=== PATIENT | female | born 1980 | race Caucasian/White ===

== ENCOUNTER 2017-01-23 06:55 | Observation (INO) | payer OTHER ==
[2017-01-23] VITALS (32 sets, daily range): BP systolic 104–156; BP diastolic 58–85; PULSE 46–74; RESP 12–22; Ht 160 cm; Wt 63.0 kg
[~2017-01-23] VITALS: Ht 160 cm; Wt 63.0 kg
[~2017-01-23 06:55] MED LIST: DOXY-220 PO; HYDR-3498 PO; LACTATED RINGER'S 1,000 ML IV* SCH
[2017-01-23] MEDS ORDERED: CLINDAMYCIN 900 MG/D5W (PMX) 50 ML IVPB PRN (07:00)
[2017-01-23] MEDS ORDERED: FER325 PO (07:32)
[2017-01-23] MEDS ORDERED: ASCO500C7 PO (07:33)
[2017-01-23] MEDS ORDERED: FENTAnyl 50 MCG/ML VIAL ONE ×2 (09:06→10:26)
[2017-01-23] MEDS ORDERED: MIDAZOLAM 1 MG/ML 2 ML INJ ONE ×2 (09:06→10:26)
[2017-01-23] MEDS ORDERED: LIDOCAINE 2% (SDV) 5 ML INJ ONE (09:50)
[2017-01-23] MEDS ORDERED: CEFAZOLIN 1 GM INJ ONE (09:50)
[2017-01-23] MEDS ORDERED: PROPOFOL 20 ML ONE (09:50)
[2017-01-23] MEDS ORDERED: ONDANSETRON 4 MG INJ ONE (09:51)
--- NOTE | 2017-01-23 09:53 | OPR ---
Date/Time of Note Date/Time of Note DATE: 01/23/17 TIME: 09:47 Operative Report Procedure Date: Jan 23, 2017 Preoperative Diagnosis Menometrorrhagia, Hyperplasia with atypia Fibroid uterus Postoperative Diagnosis same Operation/Procedure Performed Dilatation and curettage hysteroscopic resection of endometrium Surgeon see signature line Rehabilitation Counsellor none Anesthesia Type: general Estimated Blood Loss: minimal Transfusion none Specimen EMC and Endometrial resection Grafts/Implants none Tubes/Drains none Complications none Pt Condition Post Procedure: stable Disposition: PACU Procedure Description OPERATIVE FINDINGS AT SURGERY: normal endometrial cavity with hyperplastic endometrium. CONSENT: Please see preoperative notes from my office for the consent process. DESCRIPTION OF PROCEDURE: She was taken to the operating room and general anesthesia was induced. She was prepped and draped in the usual sterile fashion. Surgical time out was done. The patient and procedure were identified. The anterior lip of the cervix was grasped with a single-tooth tenaculum and dilated to size 6 Hegar dilators. The hysteroscope Beltrán and Nephew was inserted and the endometrial cavity was visualized clearly. At this time the resectoscope was inserted and the entire endometrium was resected. Dilatation and curettage was done. Traditional endometrial curettage was also obtained. Pathology was sent to the lab. The tenaculum was removed and there was no bleeding from the tenaculum site. The patient tolerated the procedure well. JOHN WILLIAM MD Jan 23, 2017 09:53
--- NOTE | 2017-01-23 09:53 | OPR ---
Date/Time of Note Date/Time of Note DATE: 01/23/17 TIME: 09:47 Operative Report Procedure Date: Jan 23, 2017 Preoperative Diagnosis Menometrorrhagia, Hyperplasia with atypia Fibroid uterus Postoperative Diagnosis same Operation/Procedure Performed Dilatation and curettage hysteroscopic resection of endometrium Surgeon see signature line Player Services Representative none Anesthesia Type: general Estimated Blood Loss: minimal Transfusion none Specimen EMC and Endometrial resection Grafts/Implants none Tubes/Drains none Complications none Pt Condition Post Procedure: stable Disposition: PACU Procedure Description OPERATIVE FINDINGS AT SURGERY: normal endometrial cavity with hyperplastic endometrium. CONSENT: Please see preoperative notes from my office for the consent process. DESCRIPTION OF PROCEDURE: She was taken to the operating room and general anesthesia was induced. She was prepped and draped in the usual sterile fashion. Surgical time out was done. The patient and procedure were identified. The anterior lip of the cervix was grasped with a single-tooth tenaculum and dilated to size 6 Hegar dilators. The hysteroscope Beltrán and Nephew was inserted and the endometrial cavity was visualized clearly. At this time the resectoscope was inserted and the entire endometrium was resected. Dilatation and curettage was done. Traditional endometrial curettage was also obtained. Pathology was sent to the lab. The tenaculum was removed and there was no bleeding from the tenaculum site. The patient tolerated the procedure well. JONH WILLIAM MD Jan 23, 2017 09:53
[2017-01-23] MEDS ORDERED: morphine 10 MG INJ ONE (10:04)
[2017-01-23] MEDS ORDERED: HYDROmorphONE (0.2 MG/ML) 10ML SYG IV ONE (10:26)
[2017-01-23] MEDS ORDERED: FENTAnyl 50 MCG/ML VIAL IV PRN (10:30)
[2017-01-23] MEDS ORDERED: ONDANSETRON 4 MG INJ IV PRN ×2 (10:30→14:00)
[2017-01-23] MEDS ORDERED: MIDAZOLAM 1 MG/ML 2 ML INJ IV PRN (10:30)
[2017-01-23] MEDS ORDERED: HYDROmorphONE (0.2 MG/ML) 10ML SYG IV PRN ×2 (10:30)
[2017-01-23] MEDS ORDERED: MEPERIDINE 25 MG INJ IV PRN (10:30)
[2017-01-23] MEDS ORDERED: ALBUTEROL 0.083% (NEB) 2.5 MG/3 ML AMP ONE (10:43)
[2017-01-23] MEDS ORDERED: ALBUTEROL 0.083% (NEB) 2.5 MG/3 ML AMP HHN PRN (11:00)
[2017-01-23] MEDS ORDERED: morphine 2 MG INJ IV PRN ×2 (12:00→14:00)
[2017-01-23] MEDS ORDERED: NITROGLYCERIN (SL) 0.4 MG TAB SL PRN (12:00)
[2017-01-23] MEDS ORDERED: GLUCOSE GEL 15 GRAM TUBE BUCCAL PRN (14:00)
[2017-01-23] MEDS ORDERED: ACETAMINOPHEN 650 MG SUPP PR PRN (14:00)
[2017-01-23] MEDS ORDERED: DOCUSATE SODIUM 100 MG CAP PO PRN (14:00)
[2017-01-23] MEDS ORDERED: GLUCOSE GEL 15 GRAM TUBE PO PRN ×2 (14:00)
[2017-01-23] MEDS ORDERED: ACETAMINOPHEN 325 MG TAB PO PRN (14:00)
[2017-01-23] MEDS ORDERED: GLUCAGON 1 MG INJ IM PRN (14:00)
[2017-01-23] MEDS ORDERED: NACL 0.9% 3 ML SYG IV SCH (14:00)
[2017-01-23] MEDS ORDERED: DEXTROSE 50% 50 ML SYRINGE IV PRN ×2 (14:00)
--- NOTE | 2017-01-23 14:06 | HP ---
Date/Time of Note Date/Time of Note DATE: 01/23/17 TIME: 14:00 Assessment/Plan VTE Prophylaxis VTE Prophylaxis Intervention: SCD's Lines/Catheters IV Catheter Type (from Nrs): Peripheral IV Assessment/Plan Chief Complaint/Hosp Course 36-year-old female with a medical history of hyperplasia with atypia, menometrorrhagia, uterine fibroid, who was brought electively for D&C by LAB INTERN team. 1. Menometrorrhagia, hyperplasia with atypia, uterine fibroid. Status post Dilatation and curettage,hysteroscopic resection of endometrium on 01/23/2017. -Follow-up with LAB INTERN recommendation on postprocedure course. 2. Chest pain,likely anxiety vs possible anemia-induced At this time, plan is to rule out acute coronary syndrome. PE is very unlikely given the normal oxygenation and complete lack of risk factors. Dissection is unlikely as the patient has no history of uncontrolled HTN and symmetric blood pressures. Plan: Serial EKG Stat ECHO if not done within 6 mos Follow cardiac enzymes Morphine for pain control Continue ASA, NTG SL PRN, O2 if indicated Consider cardiology consult depending on above workup Get lipid profile,A1C and TSH levels in am. 3. History of asthma. Currently stable. -On the clock and as needed nebulizer. 4. Reported history of prediabetes. -Obtain A1c and treat accordingly. Plan: At this time, we feel like patient would benefit from overnight stay in the hospital for observation . She will be started on a diet. Follow-up with serial troponins, 2D echocardiogram and other ordered labs and diagnostic test findings. Plan of care updated with patient and family and they are in agreement. Based on current scenario, estimate 24 hour observation in-house. Approximately 60 minutes was spent on this history and physical. Patient was seen in collaboration with . Problems: HPI/ROS Admit Date/Time Admit Date/Time Hx of Present Illness This is a 36-year-old female with a past medical history asthma, 3, tubal ligation, appendectomy, Menometrorrhagia, hyperplasia with atypia, and uterine fibroid, who was brought to [facility] same-day surgery by LAB INTERN team for elective D&C for uterine fibroid. Postprocedure, patient developed substernal chest pain and weakness. Therefore, hospitalist consultation was requested. At my encounter with the patient, patient continued to have substernal achy chest pain. She denies shortness of breath, nausea, vomiting, abdominal pain, headache, dizziness, or any syncopal episode. EBL documented as 5 mL. Currently, there is no labs to review. Vital signs within acceptable range. Patient remains on 2 L nasal cannula on 100%. She is also slightly anxious and apprehensive at this time. ROS A 12 point review of system was assessed and is negative other than what is mentioned in the HPI. PMH/Family/Social Past Medical History See HPI Past Surgical History See HPI Social History Patient denied history of alcohol, smoking or illicit drug use. Smoking Status: Never smoker Exam/Review of Systems Vital Signs Vitals Vital Signs Date Time Temp Pulse Resp B/P Pulse Ox O2 Delivery O2 Flow Rate FiO2 01/23/17 12:03 60 22 116/78 100 Nasal Cannula 01/23/17 10:53 4.0 01/23/17 10:15 98.9 Exam Exam General: Young female, looking anxious and apprehensive. HEENT: Normocephalic, Atraumatic, No laceration or hematoma; Eyes: PEERL, Conjunctiva clear, Anicteric sclera Neck: Supple without any lymphadenopathy, nontender, no JVD, no carotid bruits, trachea midline, no thyromegaly Cardiac: S1, S2 auscultated, regular rhythm and rate, no mumurs or gallop Pulmonary: Normal respiratory effort. Chest clear to auscultation bilaterally, no adventitious breath sounds GI: Abdomen normal to inspection. Soft, non tender, non- distended, no masses, no rebound tenderness or guarding. Bowel sounds active on all four quadrants Genitourinary: Deferred Extremities: No cyanosis, clubbing, or edema. Pulses [2+] bilaterally. Full ROM on all four extremities. No focal weakness appreciated. Neurologic: Alert to person, place, time, and situation. Affect appropriate, intact sensation. Skin: Clean,dry, and intact. No ecchymosis, no rashes, or lesions Medications Medications Current Medications Clindamycin HCl/ Dextrose (Cleocin 900 Mg/ D5W (Pmx)) 50 ml @ 50 mls/hr OC PRN IVPB ONCALL TO OR; Start 01/23/17 at 07:00; Stop 01/23/17 at 18:00 Aspirin (Aspirin) 81 mg DAILY PO ; Start 01/25/17 at 09:00 Nitroglycerin (Nitroglycerin (Sl Tab) 0.4 Mg) 1 tab Q5M PRN SL CHEST PAIN; Start 01/23/17 at 12:00 Morphine Sulfate 2 mg 2 mg Q2H PRN IV PAIN LEVEL 4-6; Start 01/23/17 at 12:00 Sodium Chloride (NS) 1,000 ml @ 100 mls/hr Q10H IV ; Start 01/23/17 at 13:50; Status UNV Ondansetron HCl (Zofran Inj) 4 mg Q6H PRN IV NAUSEA AND/OR VOMITING; Start at 14:00; Status UNV Acetaminophen (Tylenol Tab) 650 mg Q6H PRN PO PAIN LEVEL 1-3 OR FEVER; Start 01/23/17 at 14:00 Acetaminophen (Tylenol Supp) [address] PAIN LEVEL 1-3 OR FEVER; Start 01/23/17 at 14:00 Morphine Sulfate (morphine) 2 mg Q4H PRN IV SEVERE PAIN LEVEL 7-10; Start at 14:00; Status UNV Docusate Sodium (Colace) 100 mg Q12H PRN PO CONSTIPATION; Start 01/23/17 at 14 :00 Famotidine (Pepcid) 20 mg Q12 PO ; Start 01/23/17 at 21:00 Miscellaneous Information (* Miscellaneous Pharmacy Order) Discontinue current oral sulfonylur... ONCE ONCE XX ; Start 01/23/17 at 14:00; Stop 01/23/17 at 14:01 Diagnostic Test (Pha) (Accu-Chek) 1 ea XX ; Start 01/24/17 at 02:00 Miscellaneous Information (* Miscellaneous Pharmacy Order) HYPOGLYCEMIA PROTOCOL w... ONCE ONCE XX ; Start 01/23/17 at 14:00; Stop 01/23/17 at 14:01 Miscellaneous Information (* Miscellaneous Pharmacy Order) Discontinue all previ... ONCE ONCE XX ; Start 01/23/17 at 14:00; Stop 01/23/17 at 14:01 Ascorbic Acid (Vitamin C) 500 mg DAILY PO ; Start 01/24/17 at 09:00 Ferrous Sulfate (Ferrous Sulfate (Ec)) 325 mg DAILY PO ; Start 01/24/17 at 09: 00 Miscellaneous Information 1 ea NOTE XX ; Start 01/23/17 at 14:00 Glucose (Glutose) 15 gm Q15M PRN PO DECREASED GLUCOSE; Start 01/23/17 at 14:00 Glucose (Glutose) 22.5 gm Q15M PRN PO DECREASED GLUCOSE; Start 01/23/17 at 14: 00 Dextrose (D50w Syringe) 25 ml Q15M PRN IV DECREASED GLUCOSE; Start 01/23/17 at 14:00 Dextrose (D50w Syringe) 50 ml Q15M PRN IV DECREASED GLUCOSE; Start 01/23/17 at 14:00 Glucagon (Glucagen) 1 mg Q15M PRN IM DECREASED GLUCOSE; Start 01/23/17 at 14: 00 Glucose (Glutose) 15 gm Q15M PRN BUCCAL DECREASED GLUCOSE; Start 01/23/17 at 14:00 KAYLEIGH MATHEWA Yani ELECTRICAL & INSTRUMENTATION SUPERVISOR Jan 23, 2017 14:05 Glucose (Glutose) 15 gm Q15M PRN BUCCAL DECREASED GLUCOSE; Start 01/23/17 at 14:00 LAUREN MATHEW V. ELECTRICAL & INSTRUMENTATION SUPERVISOR Jan 23, 2017 14:05
--- NOTE | 2017-01-23 14:06 | HP ---
Date/Time of Note Date/Time of Note DATE: 01/23/17 TIME: 14:00 Assessment/Plan VTE Prophylaxis VTE Prophylaxis Intervention: SCD's Lines/Catheters IV Catheter Type (from Nrs): Peripheral IV Assessment/Plan Chief Complaint/Hosp Course 36-year-old female with a medical history of hyperplasia with atypia, menometrorrhagia, uterine fibroid, who was brought electively for D&C by HORTICULTURAL TECHNICAL OFFICER team. 1. Menometrorrhagia, hyperplasia with atypia, uterine fibroid. Status post Dilatation and curettage,hysteroscopic resection of endometrium on 01/23/2017. -Follow-up with HORTICULTURAL TECHNICAL OFFICER recommendation on postprocedure course. 2. Chest pain,likely anxiety vs possible anemia-induced At this time, plan is to rule out acute coronary syndrome. PE is very unlikely given the normal oxygenation and complete lack of risk factors. Dissection is unlikely as the patient has no history of uncontrolled HTN and symmetric blood pressures. Plan: Serial EKG Stat ECHO if not done within 6 mos Follow cardiac enzymes Morphine for pain control Continue ASA, NTG SL PRN, O2 if indicated Consider cardiology consult depending on above workup Get lipid profile,A1C and TSH levels in am. 3. History of asthma. Currently stable. -On the clock and as needed nebulizer. 4. Reported history of prediabetes. -Obtain A1c and treat accordingly. Plan: At this time, we feel like patient would benefit from overnight stay in the hospital for observation . She will be started on a diet. Follow-up with serial troponins, 2D echocardiogram and other ordered labs and diagnostic test findings. Plan of care updated with patient and family and they are in agreement. Based on current scenario, estimate 24 hour observation in-house. Approximately 60 minutes was spent on this history and physical. Patient was seen in collaboration with . Problems: HPI/ROS Admit Date/Time Admit Date/Time Hx of Present Illness This is a 36-year-old female with a past medical history asthma, 3, tubal ligation, appendectomy, Menometrorrhagia, hyperplasia with atypia, and uterine fibroid, who was brought to [facility] same-day surgery by HORTICULTURAL TECHNICAL OFFICER team for elective D&C for uterine fibroid. Postprocedure, patient developed substernal chest pain and weakness. Therefore, hospitalist consultation was requested. At my encounter with the patient, patient continued to have substernal achy chest pain. She denies shortness of breath, nausea, vomiting, abdominal pain, headache, dizziness, or any syncopal episode. EBL documented as 5 mL. Currently, there is no labs to review. Vital signs within acceptable range. Patient remains on 2 L nasal cannula on 100%. She is also slightly anxious and apprehensive at this time. ROS A 12 point review of system was assessed and is negative other than what is mentioned in the HPI. PMH/Family/Social Past Medical History See HPI Past Surgical History See HPI Social History Patient denied history of alcohol, smoking or illicit drug use. Smoking Status: Never smoker Exam/Review of Systems Vital Signs Vitals Vital Signs Date Time Temp Pulse Resp B/P Pulse Ox O2 Delivery O2 Flow Rate FiO2 01/23/17 12:03 60 22 116/78 100 Nasal Cannula 01/23/17 10:53 4.0 01/23/17 10:15 98.9 Exam Exam General: Young female, looking anxious and apprehensive. HEENT: Normocephalic, Atraumatic, No laceration or hematoma; Eyes: PEERL, Conjunctiva clear, Anicteric sclera Neck: Supple without any lymphadenopathy, nontender, no JVD, no carotid bruits, trachea midline, no thyromegaly Cardiac: S1, S2 auscultated, regular rhythm and rate, no mumurs or gallop Pulmonary: Normal respiratory effort. Chest clear to auscultation bilaterally, no adventitious breath sounds GI: Abdomen normal to inspection. Soft, non tender, non- distended, no masses, no rebound tenderness or guarding. Bowel sounds active on all four quadrants Genitourinary: Deferred Extremities: No cyanosis, clubbing, or edema. Pulses [2+] bilaterally. Full ROM on all four extremities. No focal weakness appreciated. Neurologic: Alert to person, place, time, and situation. Affect appropriate, intact sensation. Skin: Clean,dry, and intact. No ecchymosis, no rashes, or lesions Medications Medications Current Medications Clindamycin HCl/ Dextrose (Cleocin 900 Mg/ D5W (Pmx)) 50 ml @ 50 mls/hr OC PRN IVPB ONCALL TO OR; Start 01/23/17 at 07:00; Stop 01/23/17 at 18:00 Aspirin (Aspirin) 81 mg DAILY PO ; Start 01/25/17 at 09:00 Nitroglycerin (Nitroglycerin (Sl Tab) 0.4 Mg) 1 tab Q5M PRN SL CHEST PAIN; Start 01/23/17 at 12:00 Morphine Sulfate 2 mg 2 mg Q2H PRN IV PAIN LEVEL 4-6; Start 01/23/17 at 12:00 Sodium Chloride (NS) 1,000 ml @ 100 mls/hr Q10H IV ; Start 01/23/17 at 13:50; Status UNV Ondansetron HCl (Zofran Inj) 4 mg Q6H PRN IV NAUSEA AND/OR VOMITING; Start at 14:00; Status UNV Acetaminophen (Tylenol Tab) 650 mg Q6H PRN PO PAIN LEVEL 1-3 OR FEVER; Start 01/23/17 at 14:00 Acetaminophen (Tylenol Supp) 650 mg Q6H PRN [place] PAIN LEVEL 1-3 OR FEVER; Start 01/23/17 at 14:00 Morphine Sulfate (morphine) 2 mg Q4H PRN IV SEVERE PAIN LEVEL 7-10; Start at 14:00; Status UNV Docusate Sodium (Colace) 100 mg Q12H PRN PO CONSTIPATION; Start 01/23/17 at 14 :00 Famotidine (Pepcid) 20 mg Q12 PO ; Start 01/23/17 at 21:00 Miscellaneous Information (* Miscellaneous Pharmacy Order) Discontinue current oral sulfonylur... ONCE ONCE XX ; Start 01/23/17 at 14:00; Stop 01/23/17 at 14:01 Diagnostic Test (Pha) (Accu-Chek) 1 ea XX ; Start 01/24/17 at 02:00 Miscellaneous Information (* Miscellaneous Pharmacy Order) HYPOGLYCEMIA PROTOCOL w... ONCE ONCE XX ; Start 01/23/17 at 14:00; Stop 01/23/17 at 14:01 Miscellaneous Information (* Miscellaneous Pharmacy Order) Discontinue all previ... ONCE ONCE XX ; Start 01/23/17 at 14:00; Stop 01/23/17 at 14:01 Ascorbic Acid (Vitamin C) 500 mg DAILY PO ; Start 01/24/17 at 09:00 Ferrous Sulfate (Ferrous Sulfate (Ec)) 325 mg DAILY PO ; Start 01/24/17 at 09: 00 Miscellaneous Information 1 ea NOTE XX ; Start 01/23/17 at 14:00 Glucose (Glutose) 15 gm Q15M PRN PO DECREASED GLUCOSE; Start 01/23/17 at 14:00 Glucose (Glutose) 22.5 gm Q15M PRN PO DECREASED GLUCOSE; Start 01/23/17 at 14: 00 Dextrose (D50w Syringe) 25 ml Q15M PRN IV DECREASED GLUCOSE; Start 01/23/17 at 14:00 Dextrose (D50w Syringe) 50 ml Q15M PRN IV DECREASED GLUCOSE; Start 01/23/17 at 14:00 Glucagon (Glucagen) 1 mg Q15M PRN IM DECREASED GLUCOSE; Start 01/23/17 at 14: 00 Glucose (Glutose) 15 gm Q15M PRN BUCCAL DECREASED GLUCOSE; Start 01/23/17 at 14:00 KAYLEIGH MATHEWA Yani RESEARCH DEVELOPMENT MANAGER Jan 23, 2017 14:05 Glucose (Glutose) 15 gm Q15M PRN BUCCAL DECREASED GLUCOSE; Start 01/23/17 at 14:00 LAUREN MATHEW V. RESEARCH DEVELOPMENT MANAGER Jan 23, 2017 14:05
[2017-01-23] MEDS: SOD CHLORIDE 0.9% 1,000 ML IV SCH ×2 (15:08→23:50)
[2017-01-23] MEDS: INSULIN ASPART [NOVOLOG] 3 ML PEN SC SCH ×2 (17:08→20:40)
--- NOTE | 2017-01-23 17:30 | RADRPT ---
Echocardiogram Report Patient Name: CLEMENTE VAUGHN Gender: Female Date: 1980 Study Date: 23-Jan-2017 Surveyor Geophysical Prospecting: Eliane Newton RDCS Location: PACU Ref. Physician: LAUREN MATHEW Quality: Technically Difficult Study Procedures: Transthoracic echocardiogram with complete 2D, M-Mode, and doppler examination. Indications: Chest Pain. 2D/M Mode Doppler Measurement Value Normal Ranges Measurement Value Normal Ranges LVIDd 2D 5.0 3.5 - 5.6 cm AV Peak Rogers 1.2 m/sec LVIDs 2D 3.1 2.1 - 4.1 cm AV Peak PG 6.0 mmHg FS 2D 37.9 % LVOT Peak Rogers 0.9 m/sec LVPWd 2D 0.8 0.6 - 1.1 cm LVOT Peak PG 3.0 mmHg IVSd 2D 0.8 0.6 - 1.1 cm MV E Peak Rogers 0.8 m/sec IVS/LVPW 2D 1.0 MV A Peak Rogers 0.6 m/sec AoR Diam 2D 2.3 2.0 - 3.7 cm MV E/A 1.3 LA/Ao 2D 1 0 - 1 MV Decel Time 229 msec EDV 2D 122.0 cm3 MV E/A 1.3 ESV 2D 29.2 cm3 TR Peak Rogers 2.2 m/sec LA Dimen 2D 3.4 2.3 - 4.0 cm TR Peak PG 20.0 mmHg RVSP 30.0 mmHg Findings Left Ventricle: Normal left ventricular systolic function. Normal left ventricular cavity size. Normal left ventricular wall thickness. Ejection fraction is visually estimated at 55 %. Tissue Doppler/Mitral Doppler indices are within normal limits. Right Ventricle: Normal right ventricular size. Normal right ventricular systolic function. Left Atrium: The left atrium is normal in size. Right Atrium: The right atrium is normal in size. Mitral Valve: Mitral valve leaflets appear mildly thickened. Mild mitral annular calcification. Trace mitral regurgitation. Aortic Valve: Normal appearance of the aortic valve. No significant aortic stenosis or insufficiency. Tricuspid Valve: Normal appearance of the tricuspid valve. Estimated peak PA systolic pressure 30 mmHg. There is trace tricuspid regurgitation. Pulmonic Valve: Normal pulmonic valve appearance. Pericardium: Normal pericardium with no significant pericardial effusion. Aorta: Normal aortic root. IVC: Normal size and normal respiratory collapse consistent with normal right atrial pressure. Conclusions 1.Normal left ventricular systolic function. Normal left ventricular cavity size. Normal left ventricular wall thickness. Ejection fraction is visually estimated at 55 %. Tissue Doppler/Mitral Doppler indices are within normal limits. 2.Mitral valve leaflets appear mildly thickened. Mild mitral annular calcification. Trace mitral regurgitation. 3.Normal appearance of the aortic valve. No significant aortic stenosis or insufficiency. 4.Normal appearance of the tricuspid valve. Estimated peak PA systolic pressure 30 mmHg. There is trace tricuspid regurgitation. Electronically Signed By: Manuel Macias 23-Jan-2017 17:30:12 -0700 Patient Name: CLEMENTE VAUGHN Study Date: 23-Jan-2017 [id number]
[2017-01-23] MEDS: FAMOTIDINE 20 MG TAB PO SCH (20:39)
[2017-01-24] VITALS (8 sets, daily range): BP systolic 117–127; BP diastolic 65–92; PULSE 48–83; RESP 17–20
[2017-01-24] MEDS: SOD CHLORIDE 0.9% 1,000 ML IV SCH (01:26)
[2017-01-24] MEDS ORDERED: ACCU-CHEK XX SCH (02:00)
[2017-01-24] MEDS: INSULIN ASPART [NOVOLOG] 3 ML PEN SC SCH ×2 (08:00→12:00)
[2017-01-24] MEDS: FAMOTIDINE 20 MG TAB PO SCH (08:45)
[2017-01-24] MEDS ORDERED: FERROUS SULFATE (EC) 325 MG TAB PO SCH (09:00)
[2017-01-24] MEDS ORDERED: ASCORBIC ACID 500 MG TAB PO SCH (09:00)
--- NOTE | 2017-01-24 09:28 | QN ---
Documentation Comment s/p D&C [facility] [place] yesterday. surgery was without complication. she developed headache and chest pain in recovery room. Hospitalist kindly consulted. she was admitted for further evaluation. today she denies chest pain or SOB. she reports mild headache. she feels tired. she is able to ambulate well. she reports mild vaginal bleeding. AF VSS Abdomen: soft, not tender A/P: chest pain and headache post op in otherwise healthy young women. She denies chest pain today. she will be followed/managed by hospitalist. I will f/u with her in office JOHN WILLIAM MD Jan 24, 2017 09:28
--- NOTE | 2017-01-24 09:28 | QN ---
Documentation Comment s/p D&C [facility] [place] yesterday. surgery was without complication. she developed headache and chest pain in recovery room. Hospitalist kindly consulted. she was admitted for further evaluation. today she denies chest pain or SOB. she reports mild headache. she feels tired. she is able to ambulate well. she reports mild vaginal bleeding. AF VSS Abdomen: soft, not tender A/P: chest pain and headache post op in otherwise healthy young women. She denies chest pain today. she will be followed/managed by hospitalist. I will f/u with her in office JOHN WILLIAM MD Jan 24, 2017 09:28
--- NOTE | 2017-01-24 09:28 | QN ---
Documentation Comment s/p D&C [facility] [place] yesterday. surgery was without complication. she developed headache and chest pain in recovery room. Hospitalist kindly consulted. she was admitted for further evaluation. today she denies chest pain or SOB. she reports mild headache. she feels tired. she is able to ambulate well. she reports mild vaginal bleeding. AF VSS Abdomen: soft, not tender A/P: chest pain and headache post op in otherwise healthy young women. She denies chest pain today. she will be followed/managed by hospitalist. I will f/u with her in office JOHN WILLIAM MD Jan 24, 2017 09:28
--- NOTE | 2017-01-24 11:53 | PDOCDIS ---
Discharge Instructions CONDITION Patient Condition: Stable HOME CARE INSTRUCTIONS: Diet Instructions: Regular FOLLOW UP/APPOINTMENTS Follow-up Plan 1.Follow up with primary care physician in 1 week If you don't have one please let someone know, we can give you resources that may help you pick one. You may also call your insurance company to assign one to you. Review your medication list with your nurse before leaving and if you need new prescriptions please let your nurse know. I may have made changes to your home medications or given you new prescriptions, please let your primary doctor know as well. Stay compliant with your medications and report any side effects to your PCP or pharmacist. Return to the ER if you have any concerns and cannot reach your doctors or call your insurance company, they usually have a nurse that can help you. 2. Call 911 or go to the nearest emergency room if experiencing loss of consciousness, dizziness, chest pain, shortness of breath, vomiting/abdominal pain, speech difficulties, motor weakness or any unusual symptoms. 3.Follow-up with in 1 week in his office at: [id number] [place] [address] Office 4.Continue taking iron tablets 3 times a day with john handyu are already.Take Colace with iron if you are constipated. LAUREN MATHEW NP Jan 24, 2017 11:53
--- NOTE | 2017-01-24 11:53 | PDOCDIS ---
Discharge Instructions CONDITION Patient Condition: Stable HOME CARE INSTRUCTIONS: Diet Instructions: Regular FOLLOW UP/APPOINTMENTS Follow-up Plan 1.Follow up with primary care physician in 1 week If you don't have one please let someone know, we can give you resources that may help you pick one. You may also call your insurance company to assign one to you. Review your medication list with your nurse before leaving and if you need new prescriptions please let your nurse know. I may have made changes to your home medications or given you new prescriptions, please let your primary doctor know as well. Stay compliant with your medications and report any side effects to your PCP or pharmacist. Return to the ER if you have any concerns and cannot reach your doctors or call your insurance company, they usually have a nurse that can help you. 2. Call 911 or go to the nearest emergency room if experiencing loss of consciousness, dizziness, chest pain, shortness of breath, vomiting/abdominal pain, speech difficulties, motor weakness or any unusual symptoms. 3.Follow-up with in 1 week in his office at: [address] [place] [address] Office 4.Continue taking iron tablets 3 times a day with john handyu are already.Take Colace with iron if you are constipated. LAUREN MATHEW NP Jan 24, 2017 11:53
--- NOTE | 2017-01-24 11:53 | PDOCDIS ---
Discharge Instructions CONDITION Patient Condition: Stable HOME CARE INSTRUCTIONS: Diet Instructions: Regular FOLLOW UP/APPOINTMENTS Follow-up Plan 1.Follow up with primary care physician in 1 week If you don't have one please let someone know, we can give you resources that may help you pick one. You may also call your insurance company to assign one to you. Review your medication list with your nurse before leaving and if you need new prescriptions please let your nurse know. I may have made changes to your home medications or given you new prescriptions, please let your primary doctor know as well. Stay compliant with your medications and report any side effects to your PCP or pharmacist. Return to the ER if you have any concerns and cannot reach your doctors or call your insurance company, they usually have a nurse that can help you. 2. Call 911 or go to the nearest emergency room if experiencing loss of consciousness, dizziness, chest pain, shortness of breath, vomiting/abdominal pain, speech difficulties, motor weakness or any unusual symptoms. 3.Follow-up with in 1 week in his office at: [address] [place] [address] Office 4.Continue taking iron tablets 3 times a day with john handyu are already.Take Colace with iron if you are constipated. LAUREN MATHEW NP Jan 24, 2017 11:53
[2017-01-24] MEDS ORDERED: FER325 PO (11:54)
--- NOTE | 2017-01-24 11:57 | DS ---
Date/Time of Note Date/Time of Note DATE: 01/24/17 TIME: 11:57 Discharge Summary Admission/Discharge Info Admit Date/Time Jan 23, 2017 at 13:55 Discharge Date/Time Discharge Diagnosis 1. Menometrorrhagia, hyperplasia with atypia, uterine fibroid. Status post Dilatation and curettage,hysteroscopic resection of endometrium on 01/23/2017. 2. Chest pain,likely anxiety vs possible anemia-induced. ACS ruled out. Chest pain resolved. 3. History of asthma. Consults , SUBSTATION SUPERINTENDENT Procedures 01/23/2070. 2D echocardiogram. Conclusions 1. Normal left ventricular systolic function. Normal left ventricular cavity size. Normal left ventricular wall thickness. Ejection fraction is visually estimated at 55 %. Tissue Doppler/Mitral Doppler indices are within normal limits. 2. Mitral valve leaflets appear mildly thickened. Mild mitral annular calcification. Trace mitral regurgitation. 3. Normal appearance of the aortic valve. No significant aortic stenosis or insufficiency. 4. Normal appearance of the tricuspid valve. Estimated peak PA systolic pressure 30 mmHg. There is trace tricuspid regurgitation. Hx of Present Illness This is a 36-year-old female with a past medical history asthma, 3, tubal ligation, appendectomy, Menometrorrhagia, hyperplasia with atypia, and uterine fibroid, who was brought to [facility] same-day surgery by CLINICAL RESOURCE DIRECTOR team for elective D&C for uterine fibroid. Postprocedure, patient developed substernal chest pain and weakness. Therefore, hospitalist consultation was requested. At my encounter with the patient, patient continued to have substernal achy chest pain. She denies shortness of breath, nausea, vomiting, abdominal pain, headache, dizziness, or any syncopal episode. EBL documented as 5 mL. Currently, there is no labs to review. Vital signs within acceptable range. Patient remains on 2 L nasal cannula on 100%. She is also slightly anxious and apprehensive at this time. Hospital Course Patient had negative EKG. Her echocardiogram with preserved ejection fraction. Patient had -2 sets of troponin. She did have any further chest pain. Patient was noted with iron deficiency. Patient already taking iron supplements 3 times daily at home as she was noted with iron deficiency anemia in the past. At this time, patient is back to her baseline. A1c, TSH and lipid panel within acceptable range. At this time, likely cause of chest pain is most likely anxiety induced with underlying iron deficient anemia. There is no further inpatient workup indicated and patient is medically stable for discharge with outpatient CLINICAL RESOURCE DIRECTOR follow-up. Disposition: Patient will be discharged home with outpatient CLINICAL RESOURCE DIRECTOR follow-up. Patient was instructed to continue taking iron supplements and stool softeners as indicated. Patient verbalized discharge instructions. Approximately 60 minutes was spent in coordinating the discharge on this patient. Patient was seen in collaboration with . Home Meds Active Scripts Ferrous Sulfate* (Ferrous Sulfate*) 325 Mg Tabec, 325 MG PO TID for 30 Days, TAB Prov:LAUREN MATHEW NP 01/24/17 Reported Medications Ascorbic Acid* (Vitamin C*) 500 Mg Capsule.sa, 500 MG PO DAILY, CAP 01/23/17 Discontinued Scripts Doxycycline Monohydrate* (Doxycycline Monohydrate*) 100 Mg Tablet, 100 MG PO BID for surgical site cellulitis , #10 TAB Prov:MILLER SCHREIBER MD 04/28/15 Hydrocodone Bit-Acetaminophen* (Kendrick*) 5-325 Mg Tab, 1 TAB PO Q4H Y for PAIN LEVEL 1-5 for 7 Days, TAB Prov:KAYLIN ROBERSON MD 04/23/15 Follow-up Plan 1.Follow up with primary care physician in 1 week If you don't have one please let someone know, we can give you resources that may help you pick one. You may also call your insurance company to assign one to you. Review your medication list with your nurse before leaving and if you need new prescriptions please let your nurse know. I may have made changes to your home medications or given you new prescriptions, please let your primary doctor know as well. Stay compliant with your medications and report any side effects to your PCP or pharmacist. Return to the ER if you have any concerns and cannot reach your doctors or call your insurance company, they usually have a nurse that can help you. 2. Call 911 or go to the nearest emergency room if experiencing loss of consciousness, dizziness, chest pain, shortness of breath, vomiting/abdominal pain, speech difficulties, motor weakness or any unusual symptoms. 3.Follow-up with in 1 week in his office at: [address] [place] [address] Office 4.Continue taking iron tablets 3 times a day with leals a sypu are already.Take Colace with iron if you are constipated. Primary Care Provider Not On Staff Doctor Pending Labs Laboratory Tests Test 01/23/17 17:07 01/24/17 06:26 01/24/17 07:19 Iron Level 22ug/dl (35-150) Total Iron Binding Capacity 417ug/dl (241-421) Percent Iron Saturation 5% SAT (22-52) Creatine Kinase 48IU/L (23-200) Creatine Kinase Index 0.7 Creatinine Kinase MB (Mass) 0.34ng/ml (0.0-2.4) Troponin I < 0.012ng/ml (0.00-0.12) Lab Scanned Report [id number] White Blood Count 9.610^3/ul (4.8-10.8) Red Blood Count 3.9410^6/ul (4.20-5.40) Hemoglobin 10.5g/dl (12.0-16.0) Hematocrit 33.3% (37.0-47.0) Mean Corpuscular Volume 84.5fl (82.0-101.0) Mean Corpuscular Hemoglobin 26.6pg (29.0-33.0) Mean Corpuscular Hemoglobin Concent 31.5g/dl (32.0-37.0) Red Cell Distribution Width 14.0% (11.5-14.5) Platelet Count 92519^3/UL (140-415) Mean Platelet Volume 11.0fl (7.4-10.4) Neutrophils % 57.1% (39.0-77.0) Lymphocytes % 32.3% (15.0-51.0) Monocytes % 8.5% (0.0-11.0) Eosinophils % 1.4% (0.0-7.0) Basophils % 0.3% (0.0-2.0) Nucleated Red Blood Cells % 0.0/100WBC (0.0-0.0) Neutrophils # 5.510^3/ul (1.6-7.5) Lymphocytes # 3.110^3/ul (0.8-2.9) Monocytes # 0.810^3/ul (0.3-0.9) Eosinophils # 0.110^3/ul (0.0-0.5) Basophils # 0.010^3/ul (0.0-0.1) Nucleated Red Blood Cells # 0.010^3/ul (0.0-0.0) Sodium Level 142mmol/L (135-144) Potassium Level 3.6mmol/L (3.5-5.1) Chloride Level 105mmol/L (97-110) Carbon Dioxide Level 26mmol/L (21-31) Anion Gap 15 (8-16) Blood Urea Nitrogen 5mg/dl (7-20) Creatinine 0.58mg/dl (0.44-1.00) Glucose Level 101mg/dl (70-220) Hemoglobin A1c 5.6% (0-5.9) Calcium Level 8.7mg/dl (8.4-10.2) Magnesium Level 2.1mg/dl (1.7-2.5) LAUREN MATHEW NP Jan 24, 2017 11:57
--- NOTE | 2017-01-24 11:57 | DS ---
Date/Time of Note Date/Time of Note DATE: 01/24/17 TIME: 11:57 Discharge Summary Admission/Discharge Info Admit Date/Time Jan 23, 2017 at 13:55 Discharge Date/Time Discharge Diagnosis 1. Menometrorrhagia, hyperplasia with atypia, uterine fibroid. Status post Dilatation and curettage,hysteroscopic resection of endometrium on 01/23/2017. 2. Chest pain,likely anxiety vs possible anemia-induced. ACS ruled out. Chest pain resolved. 3. History of asthma. Consults , UPPER TIER Procedures 01/23/2070. 2D echocardiogram. Conclusions 1. Normal left ventricular systolic function. Normal left ventricular cavity size. Normal left ventricular wall thickness. Ejection fraction is visually estimated at 55 %. Tissue Doppler/Mitral Doppler indices are within normal limits. 2. Mitral valve leaflets appear mildly thickened. Mild mitral annular calcification. Trace mitral regurgitation. 3. Normal appearance of the aortic valve. No significant aortic stenosis or insufficiency. 4. Normal appearance of the tricuspid valve. Estimated peak PA systolic pressure 30 mmHg. There is trace tricuspid regurgitation. Hx of Present Illness This is a 36-year-old female with a past medical history asthma, 3, tubal ligation, appendectomy, Menometrorrhagia, hyperplasia with atypia, and uterine fibroid, who was brought to [facility] same-day surgery by TRANSPORT AIDE team for elective D&C for uterine fibroid. Postprocedure, patient developed substernal chest pain and weakness. Therefore, hospitalist consultation was requested. At my encounter with the patient, patient continued to have substernal achy chest pain. She denies shortness of breath, nausea, vomiting, abdominal pain, headache, dizziness, or any syncopal episode. EBL documented as 5 mL. Currently, there is no labs to review. Vital signs within acceptable range. Patient remains on 2 L nasal cannula on 100%. She is also slightly anxious and apprehensive at this time. Hospital Course Patient had negative EKG. Her echocardiogram with preserved ejection fraction. Patient had -2 sets of troponin. She did have any further chest pain. Patient was noted with iron deficiency. Patient already taking iron supplements 3 times daily at home as she was noted with iron deficiency anemia in the past. At this time, patient is back to her baseline. A1c, TSH and lipid panel within acceptable range. At this time, likely cause of chest pain is most likely anxiety induced with underlying iron deficient anemia. There is no further inpatient workup indicated and patient is medically stable for discharge with outpatient TRANSPORT AIDE follow-up. Disposition: Patient will be discharged home with outpatient TRANSPORT AIDE follow-up. Patient was instructed to continue taking iron supplements and stool softeners as indicated. Patient verbalized discharge instructions. Approximately 60 minutes was spent in coordinating the discharge on this patient. Patient was seen in collaboration with . Home Meds Active Scripts Ferrous Sulfate* (Ferrous Sulfate*) 325 Mg Tabec, 325 MG PO TID for 30 Days, TAB Prov:LAUREN MATHEW NP 01/24/17 Reported Medications Ascorbic Acid* (Vitamin C*) 500 Mg Capsule.sa, 500 MG PO DAILY, CAP 01/23/17 Discontinued Scripts Doxycycline Monohydrate* (Doxycycline Monohydrate*) 100 Mg Tablet, 100 MG PO BID for surgical site cellulitis , #10 TAB Prov:MILLER SCHREIBER MD 04/28/15 Hydrocodone Bit-Acetaminophen* ([place]*) 5-325 Mg Tab, 1 TAB PO Q4H Y for PAIN LEVEL 1-5 for 7 Days, TAB Prov:KAYLIN ROBERSON MD 04/23/15 Follow-up Plan 1.Follow up with primary care physician in 1 week If you don't have one please let someone know, we can give you resources that may help you pick one. You may also call your insurance company to assign one to you. Review your medication list with your nurse before leaving and if you need new prescriptions please let your nurse know. I may have made changes to your home medications or given you new prescriptions, please let your primary doctor know as well. Stay compliant with your medications and report any side effects to your PCP or pharmacist. Return to the ER if you have any concerns and cannot reach your doctors or call your insurance company, they usually have a nurse that can help you. 2. Call 911 or go to the nearest emergency room if experiencing loss of consciousness, dizziness, chest pain, shortness of breath, vomiting/abdominal pain, speech difficulties, motor weakness or any unusual symptoms. 3.Follow-up with in 1 week in his office at: [address] [place] [address] Office 4.Continue taking iron tablets 3 times a day with leals a sypu are already.Take Colace with iron if you are constipated. Primary Care Provider Not On Staff Doctor Pending Labs Laboratory Tests Test 01/23/17 17:07 01/24/17 06:26 01/24/17 07:19 Iron Level 22ug/dl (35-150) Total Iron Binding Capacity 417ug/dl (241-421) Percent Iron Saturation 5% SAT (22-52) Creatine Kinase 48IU/L (23-200) Creatine Kinase Index 0.7 Creatinine Kinase MB (Mass) 0.34ng/ml (0.0-2.4) Troponin I < 0.012ng/ml (0.00-0.12) Lab Scanned Report [id number] White Blood Count 9.610^3/ul (4.8-10.8) Red Blood Count 3.9410^6/ul (4.20-5.40) Hemoglobin 10.5g/dl (12.0-16.0) Hematocrit 33.3% (37.0-47.0) Mean Corpuscular Volume 84.5fl (82.0-101.0) Mean Corpuscular Hemoglobin 26.6pg (29.0-33.0) Mean Corpuscular Hemoglobin Concent 31.5g/dl (32.0-37.0) Red Cell Distribution Width 14.0% (11.5-14.5) Platelet Count 14280^3/UL (140-415) Mean Platelet Volume 11.0fl (7.4-10.4) Neutrophils % 57.1% (39.0-77.0) Lymphocytes % 32.3% (15.0-51.0) Monocytes % 8.5% (0.0-11.0) Eosinophils % 1.4% (0.0-7.0) Basophils % 0.3% (0.0-2.0) Nucleated Red Blood Cells % 0.0/100WBC (0.0-0.0) Neutrophils # 5.510^3/ul (1.6-7.5) Lymphocytes # 3.110^3/ul (0.8-2.9) Monocytes # 0.810^3/ul (0.3-0.9) Eosinophils # 0.110^3/ul (0.0-0.5) Basophils # 0.010^3/ul (0.0-0.1) Nucleated Red Blood Cells # 0.010^3/ul (0.0-0.0) Sodium Level 142mmol/L (135-144) Potassium Level 3.6mmol/L (3.5-5.1) Chloride Level 105mmol/L (97-110) Carbon Dioxide Level 26mmol/L (21-31) Anion Gap 15 (8-16) Blood Urea Nitrogen 5mg/dl (7-20) Creatinine 0.58mg/dl (0.44-1.00) Glucose Level 101mg/dl (70-220) Hemoglobin A1c 5.6% (0-5.9) Calcium Level 8.7mg/dl (8.4-10.2) Magnesium Level 2.1mg/dl (1.7-2.5) LAUREN MATHEW NP Jan 24, 2017 11:57
--- NOTE | 2017-01-24 11:57 | DS ---
Date/Time of Note Date/Time of Note DATE: 01/24/17 TIME: 11:57 Discharge Summary Admission/Discharge Info Admit Date/Time Jan 23, 2017 at 13:55 Discharge Date/Time Discharge Diagnosis 1. Menometrorrhagia, hyperplasia with atypia, uterine fibroid. Status post Dilatation and curettage,hysteroscopic resection of endometrium on 01/23/2017. 2. Chest pain,likely anxiety vs possible anemia-induced. ACS ruled out. Chest pain resolved. 3. History of asthma. Consults , HEALTHCARE ADMINISTRATIVE ASSISTANT Procedures 01/23/2070. 2D echocardiogram. Conclusions 1. Normal left ventricular systolic function. Normal left ventricular cavity size. Normal left ventricular wall thickness. Ejection fraction is visually estimated at 55 %. Tissue Doppler/Mitral Doppler indices are within normal limits. 2. Mitral valve leaflets appear mildly thickened. Mild mitral annular calcification. Trace mitral regurgitation. 3. Normal appearance of the aortic valve. No significant aortic stenosis or insufficiency. 4. Normal appearance of the tricuspid valve. Estimated peak PA systolic pressure 30 mmHg. There is trace tricuspid regurgitation. Hx of Present Illness This is a 36-year-old female with a past medical history asthma, 3, tubal ligation, appendectomy, Menometrorrhagia, hyperplasia with atypia, and uterine fibroid, who was brought to [facility] same-day surgery by SUPERVISOR LOOPING team for elective D&C for uterine fibroid. Postprocedure, patient developed substernal chest pain and weakness. Therefore, hospitalist consultation was requested. At my encounter with the patient, patient continued to have substernal achy chest pain. She denies shortness of breath, nausea, vomiting, abdominal pain, headache, dizziness, or any syncopal episode. EBL documented as 5 mL. Currently, there is no labs to review. Vital signs within acceptable range. Patient remains on 2 L nasal cannula on 100%. She is also slightly anxious and apprehensive at this time. Hospital Course Patient had negative EKG. Her echocardiogram with preserved ejection fraction. Patient had -2 sets of troponin. She did have any further chest pain. Patient was noted with iron deficiency. Patient already taking iron supplements 3 times daily at home as she was noted with iron deficiency anemia in the past. At this time, patient is back to her baseline. A1c, TSH and lipid panel within acceptable range. At this time, likely cause of chest pain is most likely anxiety induced with underlying iron deficient anemia. There is no further inpatient workup indicated and patient is medically stable for discharge with outpatient SUPERVISOR LOOPING follow-up. Disposition: Patient will be discharged home with outpatient SUPERVISOR LOOPING follow-up. Patient was instructed to continue taking iron supplements and stool softeners as indicated. Patient verbalized discharge instructions. Approximately 60 minutes was spent in coordinating the discharge on this patient. Patient was seen in collaboration with . Home Meds Active Scripts Ferrous Sulfate* (Ferrous Sulfate*) 325 Mg Tabec, 325 MG PO TID for 30 Days, TAB Prov:LAUREN MATHEW NP 01/24/17 Reported Medications Ascorbic Acid* (Vitamin C*) 500 Mg Capsule.sa, 500 MG PO DAILY, CAP 01/23/17 Discontinued Scripts Doxycycline Monohydrate* (Doxycycline Monohydrate*) 100 Mg Tablet, 100 MG PO BID for surgical site cellulitis , #10 TAB Prov:MILLER SCHREIBER MD 04/28/15 Hydrocodone Bit-Acetaminophen* ([place]*) 5-325 Mg Tab, 1 TAB PO Q4H Y for PAIN LEVEL 1-5 for 7 Days, TAB Prov:KAYLIN ROBERSON MD 04/23/15 Follow-up Plan 1.Follow up with primary care physician in 1 week If you don't have one please let someone know, we can give you resources that may help you pick one. You may also call your insurance company to assign one to you. Review your medication list with your nurse before leaving and if you need new prescriptions please let your nurse know. I may have made changes to your home medications or given you new prescriptions, please let your primary doctor know as well. Stay compliant with your medications and report any side effects to your PCP or pharmacist. Return to the ER if you have any concerns and cannot reach your doctors or call your insurance company, they usually have a nurse that can help you. 2. Call 911 or go to the nearest emergency room if experiencing loss of consciousness, dizziness, chest pain, shortness of breath, vomiting/abdominal pain, speech difficulties, motor weakness or any unusual symptoms. 3.Follow-up with in 1 week in his office at: [address] [place] [address] Office 4.Continue taking iron tablets 3 times a day with leals a sypu are already.Take Colace with iron if you are constipated. Primary Care Provider Not On Staff Doctor Pending Labs Laboratory Tests Test 01/23/17 17:07 01/24/17 06:26 01/24/17 07:19 Iron Level 22ug/dl (35-150) Total Iron Binding Capacity 417ug/dl (241-421) Percent Iron Saturation 5% SAT (22-52) Creatine Kinase 48IU/L (23-200) Creatine Kinase Index 0.7 Creatinine Kinase MB (Mass) 0.34ng/ml (0.0-2.4) Troponin I < 0.012ng/ml (0.00-0.12) Lab Scanned Report [id number] White Blood Count 9.610^3/ul (4.8-10.8) Red Blood Count 3.9410^6/ul (4.20-5.40) Hemoglobin 10.5g/dl (12.0-16.0) Hematocrit 33.3% (37.0-47.0) Mean Corpuscular Volume 84.5fl (82.0-101.0) Mean Corpuscular Hemoglobin 26.6pg (29.0-33.0) Mean Corpuscular Hemoglobin Concent 31.5g/dl (32.0-37.0) Red Cell Distribution Width 14.0% (11.5-14.5) Platelet Count 55939^3/UL (140-415) Mean Platelet Volume 11.0fl (7.4-10.4) Neutrophils % 57.1% (39.0-77.0) Lymphocytes % 32.3% (15.0-51.0) Monocytes % 8.5% (0.0-11.0) Eosinophils % 1.4% (0.0-7.0) Basophils % 0.3% (0.0-2.0) Nucleated Red Blood Cells % 0.0/100WBC (0.0-0.0) Neutrophils # 5.510^3/ul (1.6-7.5) Lymphocytes # 3.110^3/ul (0.8-2.9) Monocytes # 0.810^3/ul (0.3-0.9) Eosinophils # 0.110^3/ul (0.0-0.5) Basophils # 0.010^3/ul (0.0-0.1) Nucleated Red Blood Cells # 0.010^3/ul (0.0-0.0) Sodium Level 142mmol/L (135-144) Potassium Level 3.6mmol/L (3.5-5.1) Chloride Level 105mmol/L (97-110) Carbon Dioxide Level 26mmol/L (21-31) Anion Gap 15 (8-16) Blood Urea Nitrogen 5mg/dl (7-20) Creatinine 0.58mg/dl (0.44-1.00) Glucose Level 101mg/dl (70-220) Hemoglobin A1c 5.6% (0-5.9) Calcium Level 8.7mg/dl (8.4-10.2) Magnesium Level 2.1mg/dl (1.7-2.5) LAUREN MATHEW NP Jan 24, 2017 11:57
--- NOTE | 2017-01-24 14:56 | RADRPT ---
Vent Rate: 51 bpm RR Interval: 0 msec MD Interval: 172 msec QRS Duration: 92 msec QT Interval: 472 msec QTC Interval: 435 msec P-R-T [place]: 52 - 67 - 30 degrees Sinus bradycardia Nonspecific T wave abnormality Abnormal ECG Electronically Signed By: Wilner Barajas [id number]
--- NOTE | 2017-01-24 14:56 | RADRPT ---
Vent Rate: 51 bpm RR Interval: 0 msec [place] Interval: 172 msec QRS Duration: 92 msec QT Interval: 472 msec QTC Interval: 435 msec P-R-T [place]: 52 - 67 - 30 degrees Sinus bradycardia Nonspecific T wave abnormality Abnormal ECG Electronically Signed By: Wilner Barajas [id number]
--- NOTE | 2017-01-24 14:56 | RADRPT ---
Vent Rate: 51 bpm RR Interval: 0 msec [place] Interval: 172 msec QRS Duration: 92 msec QT Interval: 472 msec QTC Interval: 435 msec P-R-T [place]: 52 - 67 - 30 degrees Sinus bradycardia Nonspecific T wave abnormality Abnormal ECG Electronically Signed By: Wilner Barajas [id number]
[2017-01-25] MEDS ORDERED: ASPIRIN 81 MG TAB PO SCH (09:00)
== END 2017-01-24 14:46 | disposition home or self-care (01) ==
LOC: SDS 06:55 → MS4 13:55 → SDS 13:55
PROVIDERS: ADMIT Specialist; ATTEND Specialist
DX: N92.1 Excessive and frequent menstruation with irregular cycle (principal); D25.9 Leiomyoma of uterus, unspecified; J45.909 Unspecified asthma, uncomplicated; D64.9 Anemia, unspecified; R07.9 Chest pain, unspecified; R51 Headache
CPT/HCPCS: 58558; 80048; 82550; 82553; 83036; 83540; 83735; 84484; 84703; 85025; 88305; 93005; 93306; 94664; J0690; J1170; J1815; J2250; J2270; J2405; J3010; J7030; Z7500; Z7512; Z7610; 99217; G0378

== ENCOUNTER 2017-07-06 10:19 | Inpatient (IN) | END 2017-07-08 14:30 | disposition home or self-care (01) | DRG 743 ==